=== PATIENT | female | born 2000 | race Caucasian/White ===

== ENCOUNTER 2020-03-09 00:10 | Outpatient (CLI) | payer MEDICAID, OTHER ==
[2020-03-09 00:52] LABS: APPEARANCE,URINE SLIGHTLY-CLOUDY; BILIRUBIN,URINE NEGATIVE (NEGATIVE); COLOR,URINE STRAW; GLUCOSE, URINE NEGATIVE (NEGATIVE); KETONES,URINE NEGATIVE (NEGATIVE); LEUKOCYTE ESTERASE,URINE NEGATIVE (NEGATIVE); NITRITE,URINE NEGATIVE (NEGATIVE); PROTEIN,URINE NEGATIVE (NEGATIVE); URINE SPECIFIC GRAVITY 1.006; UROBILINOGEN,URINE NEGATIVE mg/dL (<2.0)
[2020-03-09 01:10] LABS: URINE AMPHETAMINES SCREEN NEGATIVE; URINE BARBITURATES SCREEN NEGATIVE; URINE BENZODIAZEPINES SCREEN NEGATIVE; URINE COCAINE SCREEN NEGATIVE; URINE MARIJUANA (THC) SCREEN NEGATIVE; URINE METHADONE SCREEN NEGATIVE; URINE PHENCYCLIDINE SCREEN NEGATIVE
--- NOTE | 2020-03-09 02:03 | Non Stress Test Report ---
Non Stress Test Datetime Report Generated by CPN: 03/09/2020 02:03 DEMOGRAPHIC Test Number: 1 EGA NST: 34.5 INDICATION Indication for Study (NST) Other: LC URINE RESULTS Urine Protein, NST: Negative Urine Ketones - NST: Negative Urine Glucose - NST: Negative Urine Blood - NST: Negative MONITORING Monitor Explained: Monitor Explained; Test Explained; Patient Verbalized Understanding Time on Monitor: 03/09/2020 00:33 Time off Monitor: 03/09/2020 01:28 NST Duration: 55 NST INTERVENTIONS NST Interventions: PO Hydration Physician Notified NST: Dr. Hua BABY A: [id number] BABY A Movement : Present Contraction Frequency : rare with ui FHR Baseline : 125 Accelerations : 15X15 Decelerations : None Variability : Moderate 6-25bpm NST Review: Meets Criteria for Reactive NST NST Review and Verified By : Maria C Goss RN NST Results: Reactive NST REPORT Report Trigger: Send Report
== END 2020-03-09 03:27 | disposition home or self-care (01) ==
LOC: LC 00:10
PROVIDERS: ATTEND Obstetrics & Gynecology
DX: O47.03 False labor before 37 completed weeks of gestation, third trimester (principal); Z3A.34 34 weeks gestation of pregnancy
CPT/HCPCS: 59025; 80307; 81001

== ENCOUNTER 2020-03-19 23:12 | Outpatient (CLI) | payer OTHER ==
[2020-03-19 23:58] LABS: APPEARANCE,URINE CLEAR; BILIRUBIN,URINE NEGATIVE (NEGATIVE); COLOR,URINE STRAW; GLUCOSE, URINE NEGATIVE (NEGATIVE); KETONES,URINE 20 mg/dL (NEGATIVE); LEUKOCYTE ESTERASE,URINE NEGATIVE (NEGATIVE); NITRITE,URINE NEGATIVE (NEGATIVE); PROTEIN,URINE NEGATIVE (NEGATIVE); URINE SPECIFIC GRAVITY 1.005; UROBILINOGEN,URINE NEGATIVE mg/dL (<2.0)
[2020-03-20 00:11] LABS: URINE AMPHETAMINES SCREEN NEGATIVE; URINE BARBITURATES SCREEN NEGATIVE; URINE BENZODIAZEPINES SCREEN NEGATIVE; URINE COCAINE SCREEN NEGATIVE; URINE MARIJUANA (THC) SCREEN NEGATIVE; URINE METHADONE SCREEN NEGATIVE; URINE PHENCYCLIDINE SCREEN NEGATIVE
--- NOTE | 2020-03-20 00:25 | Non Stress Test Report ---
Non Stress Test Datetime Report Generated by CPN: 03/20/2020 00:24 DEMOGRAPHIC EGA NST: 36.1 INDICATION Indication for Study (NST) Other: LC- ctx MONITORING Monitor Explained: Monitor Explained; Test Explained; Patient Verbalized Understanding Time on Monitor: 03/19/2020 23:28 Time off Monitor: 03/20/2020 00:18 NST Duration: 50 NST INTERVENTIONS NST Interventions: None Physician Notified NST: Dr. Velázquez BABY A: [id number] BABY A Movement : Present Contraction Frequency : irregular FHR Baseline : 130 Accelerations : 15X15 Decelerations : None Variability : Moderate 6-25bpm NST Review: Meets Criteria for Reactive NST NST Review and Verified By : ANGELA Sandoval Results: Reactive NST REPORT Report Trigger: Send Report
== END 2020-03-20 00:24 | disposition home or self-care (01) ==
LOC: LC 23:12
PROVIDERS: ATTEND Obstetrics & Gynecology Gynecology
DX: O47.03 False labor before 37 completed weeks of gestation, third trimester (principal); Z3A.36 36 weeks gestation of pregnancy
CPT/HCPCS: 59025; 80307; 81001; 84112

== ENCOUNTER 2020-04-18 01:27 | Outpatient (CLI) | payer OTHER ==
[2020-04-18 01:57] LABS: APPEARANCE,URINE CLEAR; BILIRUBIN,URINE NEGATIVE (NEGATIVE); COLOR,URINE STRAW; GLUCOSE, URINE NEGATIVE (NEGATIVE); KETONES,URINE NEGATIVE (NEGATIVE); LEUKOCYTE ESTERASE,URINE NEGATIVE (NEGATIVE); NITRITE,URINE NEGATIVE (NEGATIVE); PROTEIN,URINE NEGATIVE (NEGATIVE); URINE SPECIFIC GRAVITY 1.009; UROBILINOGEN,URINE NEGATIVE mg/dL (<2.0)
[2020-04-18 02:20] LABS: URINE AMPHETAMINES SCREEN NEGATIVE; URINE BARBITURATES SCREEN NEGATIVE; URINE BENZODIAZEPINES SCREEN NEGATIVE; URINE COCAINE SCREEN NEGATIVE; URINE MARIJUANA (THC) SCREEN NEGATIVE; URINE METHADONE SCREEN NEGATIVE; URINE PHENCYCLIDINE SCREEN NEGATIVE
--- NOTE | 2020-04-18 03:35 | Non Stress Test Report ---
Non Stress Test Datetime Report Generated by CPN: 04/18/2020 03:35 DEMOGRAPHIC EGA NST: 40.3 INDICATION Indication for Study (NST) Other: LC URINE RESULTS Urine Protein, NST: Negative Urine Ketones - NST: Negative Urine Glucose - NST: Negative Urine Blood - NST: Negative MONITORING Monitor Explained: Monitor Explained; Test Explained; Patient Verbalized Understanding Time on Monitor: 04/18/2020 01:47 Time off Monitor: 04/18/2020 02:42 NST Duration: 55 NST INTERVENTIONS NST Interventions: PO Hydration Physician Notified NST: Tyrese BABY A: [id number] BABY A Movement : Present Contraction Frequency : IREGG FHR Baseline : 125 Accelerations : 15X15 Decelerations : None Variability : Moderate 6-25bpm NST Review: Meets Criteria for Reactive NST NST Review and Verified By : Caden Puga RN Results: Reactive NST REPORT Report Trigger: Send Report
== END 2020-04-18 02:54 | disposition home or self-care (01) ==
LOC: LC 01:27
PROVIDERS: ATTEND Obstetrics & Gynecology
DX: O47.1 False labor at or after 37 completed weeks of gestation (principal); O48.0 Post-term pregnancy; Z3A.40 40 weeks gestation of pregnancy
CPT/HCPCS: 59025; 80307; 81005

== ENCOUNTER 2020-04-21 17:12 | Outpatient (CLI) | payer OTHER ==
[2020-04-21] MEDS ORDERED: RINGERS SOLUTION,LACTATED 1,000 ML IV SCH (18:00)
[2020-04-21] MEDS ORDERED: RINGERS SOLUTION,LACTATED 1,000 ML IV PRN (18:35)
[2020-04-21 19:05] LABS: APPEARANCE,URINE CLEAR; BILIRUBIN,URINE NEGATIVE (NEGATIVE); COLOR,URINE STRAW; GLUCOSE, URINE NEGATIVE (NEGATIVE); KETONES,URINE NEGATIVE (NEGATIVE); LEUKOCYTE ESTERASE,URINE NEGATIVE (NEGATIVE); NITRITE,URINE NEGATIVE (NEGATIVE); PROTEIN,URINE NEGATIVE (NEGATIVE); URINE SPECIFIC GRAVITY 1.004; UROBILINOGEN,URINE NEGATIVE mg/dL (<2.0)
[2020-04-21 19:23] LABS: URINE AMPHETAMINES SCREEN NEGATIVE; URINE BARBITURATES SCREEN NEGATIVE; URINE BENZODIAZEPINES SCREEN NEGATIVE; URINE COCAINE SCREEN NEGATIVE; URINE MARIJUANA (THC) SCREEN NEGATIVE; URINE METHADONE SCREEN NEGATIVE; URINE PHENCYCLIDINE SCREEN NEGATIVE
--- NOTE | 2020-04-21 20:47 | Non Stress Test Report ---
Non Stress Test Datetime Report Generated by CPN: 04/21/2020 20:47 DEMOGRAPHIC EGA NST: 40.6 MONITORING Monitor Explained: Monitor Explained; Test Explained; Patient Verbalized Understanding Time on Monitor: 04/21/2020 17:24 Time off Monitor: 04/21/2020 19:10 NST Duration: 106 NST INTERVENTIONS NST Interventions: IV Fluids Physician Notified NST: Dr. Tyrese BABY A: [id number] BABY A Movement : Present Contraction Frequency : Irregular FHR Baseline : 140 Accelerations : 15X15 Decelerations : None Variability : Moderate 6-25bpm NST Review: Meets Criteria for Reactive NST NST Review and Verified By : D Hildance RN NST Results: Reactive NST REPORT Report Trigger: Send Report
--- NOTE | 2020-04-21 21:05 | RADIOLOGY REPORT (SQ) ---
EXAM DESCRIPTION: US LIMITED COMPLETED DATE/TME: 04/21/2020 20:00 CLINICAL HISTORY: 19 years Female Repeat GARETH at 20:00 please. COMPARISON: None. TECHNIQUE: Transabdominal duplex imaging performed to evaluate the pelvis. FINDINGS: Vertex presentation. heart rate 153 bpm. GARETH 5.7 cm. IMPRESSION: GARETH 5.7 cm
== END 2020-04-21 20:43 | disposition home or self-care (01) ==
LOC: LC 17:12
PROVIDERS: ATTEND Obstetrics & Gynecology
DX: O26.893 Other specified pregnancy related conditions, third trimester (principal); Z3A.40 40 weeks gestation of pregnancy
CPT/HCPCS: 76815; 80307; 81005

== ENCOUNTER 2020-04-22 15:18 | Outpatient (CLI) | payer OTHER ==
--- NOTE | 2020-04-22 16:26 | Non Stress Test Report ---
Non Stress Test Datetime Report Generated by CPN: 04/22/2020 16:25 DEMOGRAPHIC EGA NST: 41.0 INDICATION Indication for Study (NST) Other: IUP at 41 weeks MONITORING Monitor Explained: Monitor Explained; Test Explained; Patient Verbalized Understanding Time on Monitor: 04/22/2020 15:32 Time off Monitor: 04/22/2020 16:21 NST Duration: 49 NST INTERVENTIONS NST Interventions: PO Hydration; Reposition Patient Physician Notified NST: C. Rucker CNM on unit, reviewed fht BABY A: [id number] BABY A Movement : Present Contraction Frequency : x2 FHR Baseline : 125 Accelerations : 15X15 Decelerations : None Variability : Moderate 6-25bpm NST Review: Meets Criteria for Reactive NST NST Review and Verified By : Nixon Ahn RN NST Results: Reactive NST REPORT Report Trigger: Send Report
[2020-04-22 17:09] LABS: AMORPHOUS SEDIMENT,URINE TRACE /HPF; APPEARANCE,URINE CLOUDY; BILIRUBIN,URINE NEGATIVE (NEGATIVE); COLOR,URINE YELLOW; GLUCOSE, URINE NEGATIVE (NEGATIVE); KETONES,URINE NEGATIVE (NEGATIVE); LEUKOCYTE ESTERASE,URINE TRACE (NEGATIVE); NITRITE,URINE NEGATIVE (NEGATIVE); PROTEIN,URINE NEGATIVE (NEGATIVE); URINE SPECIFIC GRAVITY 1.012
[2020-04-22 17:15] LABS: URINE AMPHETAMINES SCREEN NEGATIVE; URINE BARBITURATES SCREEN NEGATIVE; URINE BENZODIAZEPINES SCREEN NEGATIVE; URINE COCAINE SCREEN NEGATIVE; URINE MARIJUANA (THC) SCREEN NEGATIVE; URINE METHADONE SCREEN NEGATIVE; URINE PHENCYCLIDINE SCREEN NEGATIVE
== END 2020-04-22 16:41 | disposition home or self-care (01) ==
LOC: LC 15:18
PROVIDERS: ATTEND Obstetrics & Gynecology Gynecology
DX: O48.0 Post-term pregnancy (principal); Z3A.40 40 weeks gestation of pregnancy; Z87.891 Personal history of nicotine dependence
CPT/HCPCS: 59025; 80307; 81001

== ENCOUNTER 2020-04-23 17:18 | Inpatient (IN) | payer OTHER ==
[2020-04-23] MEDS ORDERED: RINGERS SOLUTION,LACTATED 1,000 ML IV PRN (17:30)
[2020-04-23] MEDS ORDERED: RINGERS SOLUTION,LACTATED 1,000 ML IV ONE (17:30)
[2020-04-23] MEDS ORDERED: OXYTOCIN/0.9 % SODIUM CHLORIDE 30 UNIT/500 ML RTUINJ IV PRN (18:10)
[2020-04-23] MEDS ORDERED: OXYTOCIN/0.9 % SODIUM CHLORIDE 30 UNIT/500 ML RTUINJ ONE (18:11)
[2020-04-23] MEDS ORDERED: MISOPROSTOL 0.2 MG TABLET ONE (18:11)
[2020-04-23] MEDS ORDERED: LIDOCAINE 1% INJ-PF (10 MG/ML) 30 ML SDV ONE (18:11)
[2020-04-23] MEDS ORDERED: OXYTOCIN 10 UNIT/ML VIAL ONE (18:11)
[2020-04-23 18:13] LABS: ABSOLUTE EOSINOPHILS # (AUTO) 0.1 10^3/uL (0.0-0.6); ABSOLUTE MONOCYTES (AUTO) 0.7 10^3/uL (0.1-1.4); ABSOLUTE NEUT (AUTO) 9.1 10^3/uL (1.7-8.2); BASOPHILS % (AUTO) 0.3 % (0-2); EOSINOPHILS % (AUTO) 0.7 % (0-6); HEMATOCRIT 32.3 % (36.0-47.0); LYMPHOCYTES % (AUTO) 16.8 % (13-45); MEAN CORPUSCULAR HEMOGLOBIN 27.7 pg (27.0-33.4); MEAN CORPUSCULAR VOLUME 82 fl (80-97); MONOCYTES % (AUTO) 5.9 % (3-13); PLATELET COUNT 363 10^3/uL (150-450); RED BLOOD COUNT 3.96 10^6/uL (3.72-5.28); RED CELL DISTRIBUTION WIDTH 13.9 % (11.5-14.0); SEGMENTED NEUTROPHILS % (AUTO) 76.3 % (42-78); TOTAL CELLS COUNTED % (AUTO) 100 %
[2020-04-23 18:34] LABS: URINE AMPHETAMINES SCREEN NEGATIVE; URINE BARBITURATES SCREEN NEGATIVE; URINE BENZODIAZEPINES SCREEN NEGATIVE; URINE COCAINE SCREEN NEGATIVE; URINE MARIJUANA (THC) SCREEN NEGATIVE; URINE METHADONE SCREEN NEGATIVE; URINE PHENCYCLIDINE SCREEN NEGATIVE
[2020-04-23 20:22] LABS: APPEARANCE,URINE CLOUDY; BILIRUBIN,URINE NEGATIVE (NEGATIVE); COLOR,URINE YELLOW; GLUCOSE, URINE NEGATIVE (NEGATIVE); KETONES,URINE 20 mg/dL (NEGATIVE); LEUKOCYTE ESTERASE,URINE MODERATE (NEGATIVE); NITRITE,URINE NEGATIVE (NEGATIVE); PROTEIN,URINE 30 mg/dL (NEGATIVE); URINE SPECIFIC GRAVITY 1.021
[2020-04-24] MEDS ORDERED: GENTAMICIN SULFATE INJ 80 MG/2 ML VIAL IV ONE (02:30)
[2020-04-24] MEDS ORDERED: AMPICILLIN SODIUM 2 GM in NORMAL SALINE 100 ML IV ONE (03:00)
[2020-04-24] MEDS ORDERED: GENTAMICIN SULFATE INJ 80 MG/2 ML VIAL ONE (03:23)
[2020-04-24] MEDS ORDERED: AMPICILLIN SOD INJ 2 GM VIAL ONE (03:24)
[2020-04-24] MEDS ORDERED: METHYLERGONOVINE MALEATE INJ/PF 0.2 MG/1 ML AMPULE ONE (06:15)
[2020-04-24] MEDS ORDERED: DIBUCAINE 1% OINTMENT 28 GM TP PRN (06:47)
[2020-04-24] MEDS ORDERED: PROMETHAZINE HCL INJ 25 MG/1 ML VIAL IV PRN (06:47)
[2020-04-24] MEDS ORDERED: DIPH/PERTUSS(ACELL)/TETANUS VAC/PF 0.5 ML SYR (>=10YO) IM PRN (06:47)
[2020-04-24] MEDS ORDERED: PSEUDOEPHEDRINE HCL 30 MG TABLET PO PRN (06:47)
[2020-04-24] MEDS ORDERED: MAGNESIUM HYDROXIDE SUSP 30 ML UDCUP PO PRN (06:47)
[2020-04-24] MEDS ORDERED: PROMETHAZINE HCL 25 MG SUPP.RECT PR PRN (06:47)
[2020-04-24] MEDS ORDERED: BENZOCAINE/MENTHOL AEROSOL SPRAY 56 ML TOP PRN (06:47)
[2020-04-24] MEDS ORDERED: METHYLERGONOVINE MALEATE INJ/PF 0.2 MG/1 ML AMPULE IM PRN (06:47)
[2020-04-24] MEDS ORDERED: ACETAMINOPHEN 325 MG TABLET PO PRN (06:47)
[2020-04-24] MEDS ORDERED: ACETAMINOPHEN WITH CODEINE #3 TABLET PO PRN ×2 (06:47)
[2020-04-24] MEDS ORDERED: GLYCERIN/WITCH HAZEL LEAF 1 EACH MED..WIPE TP PRN (06:47)
[2020-04-24] MEDS ORDERED: OXYTOCIN/0.9 % SODIUM CHLORIDE 30 UNIT/500 ML RTUINJ IV PRN (06:47)
[2020-04-24] MEDS ORDERED: MISOPROSTOL 0.2 MG TABLET PR PRN (06:47)
[2020-04-24] MEDS ORDERED: NA PHOS,M-B/NA PHOS,DI-BA (ADULT) 133 ML ENEMA PR PRN (06:47)
[2020-04-24] MEDS ORDERED: DIPHENHYDRAMINE HCL 25 MG CAPSULE PO PRN (06:47)
[2020-04-24] MEDS ORDERED: PROMETHAZINE HCL 25 MG TABLET PO PRN (06:47)
[2020-04-24] MEDS ORDERED: MEASLES,MUMPS&RUBELLA VACC/PF 0.5 ML VIAL SUBCUT PRN (06:47)
[2020-04-24] MEDS ORDERED: ZOLPIDEM TARTRATE 5 MG TABLET PO PRN (06:47)
--- NOTE | 2020-04-24 07:08 | Admission Physical ---
Datetime Report Generated by CPN: 04/24/2020 07:08 CURRENT ADMISSION Chief Complaint: Uterine Contractions Indication for Induction: Post Dates; Oligohydramnios Admit Impression : Term, Intrauterine ; Ruptured Membranes; Intact Membranes; Induction of Labor Admit Plan: Admit to Unit; Initiate Labor Protocol ALLERGIES Medication Allergies: No Medication Allergies: No Known Allergies (03/19/2020) Latex: No Latex Allergies Food Allergies: denies Environmental Allergies: denies OBSTETRICAL HISTORY EDC: 04/15/2020 00:00 : 1 Para: 0 Term: 0 : 0 SAB: 0 IAB: 0 Ectopic: 0 Livin Cesareans: 0 VBACs: 0 Multiple Births: 0 Gestational Diabetes: No Rh Sensitization: No Incompetent Cervix: No AB: No Infertility: No ART Treatment: No Uterine Anomaly: No IUGR: No Hx Previous C/S: No Macrosomia: No Hx Loss/Stillborn: No PIH: No Hx : No Placenta Previa/Abruption: No Depression/PP Depression: No PTL/PROM: No Post Hemorrhage: No Current Procedures: Ultrasound; NST Obstetrical History Comments: g1-current SEE RECORDS Alcohol: No Marijuana : No Cocaine: No Other Illicit Drugs: No Cigarettes: Former Smoker. [id number] Cigarette Comments: quit with MEDICAL HISTORY Diabetes: No Blood Transfusion: No Pulmonary Disease (Asthma, TB): No Breast Disease: No Hypertension: No Foam Charger Surgery: No Heart Disease: No Hosp/Surgery: No Autoimmune Disorder: No Anesthetic Complications: No Kidney Disease: No Abnormal Pap Smear: No Neuro/Epilepsy: No Psychiatric Disorders: No Other Medical Diseases: No Hepatitis/Liver Disease: No Significant Family History: No Varicosities/Phlebitis: No Trauma/Violence : No Thyroid Dysfunction: No INFECTIOUS HISTORY Gonorrhea: No Genital Herpes: No Chlamydia: No Tuberculosis: No Syphilis: No Hepatitis: No HIV/AIDS Exposure: No Rash or Viral Illness: No HPV: No PHYSICAL EXAM General: Normal HEENT: Normal Neurologic: Normal Thyroid: Deferred Heart: Normal Lungs: Normal Breast: Deferred Back: Normal Abdomen: Normal Genitourinary Exam: Normal Extremities: Normal DTRs: Normal Pelvic Type: Adequate Vital Signs: Reviewed VAGINAL EXAM Dilatation: 2 Effacement: 70 Station: -3 Contraction Comments: rare MEMBRANES Membranes: Ruptured FETUS A EGA: 41.2 Monitoring: External US FHR- Baseline: 125 Variability: Moderate 6-25bpm Accelerations: 15X15 Decelerations: None FHR Category: Category I Presentation: Vertex Admit Comment: 19yo at 41+1ega here for IOL due to post AYLA and oligo. SHe reports she broke her water at approx noon. Did not come up unitl 1700ish. AMP/Gent ordered for after midnight due to will be 18 hours ruptured at 0600 on 04/24. GBS negative. Admit to labor and delivery for augmentation due to SROM/PostEDD/Scheduled IOL with oligo. Anticipate . PLANS FOR LABOR AND DELIVERY Labor and Delivery: None Pain Management: Natural Feeding Preference: Breast Benefit of Breast Feed Discussed: Yes Circumcision: N/A INFORMED CONSENT Informed Consent Obtained: Vaginal Delivery; Induction of Labor; Risks, Benefits and Alternatives Discussed Signature: with User ID: [email or web address]
--- NOTE | 2020-04-24 07:24 | Delivery Summary ---
Del Sum A-C Datetime Report Generated by CPN: 04/24/2020 07:23 DELIVERY PERSONNEL DELIVERY PERSONNEL: [id number] Delivery Doctor:: Juana Montoya MD Labor and Delivery Nurse:: Susan Kearney RNfull time staff interpreter Nurse:: Berta Gibbs RN Trim Mechanic/IS TECHNICIAN: Sandra Manjinder, ST MATERNAL INFORMATION Delivery Anesthesia: None Medications After Delivery: Pitocin Bolus-Please Comment; Methergine 0.2mg IM; Cytotec 1000mcg Per Rectum/Vagina Meds After Delivery Comment: Pitocin 30 units/500 ml NSS Estimated Blood Loss (ml): 300 Delivery QBL: 300 Maternal Complications: None Provider Comments: VFI delivered in LESLIE presentation. No nuchal cord. Shoulders and body delivered without difficulty. to maternal abdomen for NRP. Cord doubly clamped and cut after 2 minites. Lower uterine segment atony noted and improved after Metergine Intrauterine, Cytotec 1000mcg MO, IV pitocin. FF at U. Placenta delivered intact spontaneously. 2nd degree perineal laceration repaired in usual fashion. LABOR SUMMARY EDC: 04/15/2020 00:00 No. Babies in Womb: 1 Attempted: No Labor Anesthesia: None LABOR INFORMATION Reason for Induction: Oligohydramnios Onset of Labor: 04/23/2020 23:47 Complete Dilatation: 04/24/2020 04:44 Oxytocin: Induction Group B Beta Strep: negative Antibiotics # of Doses: 0 Antibiotics Time of Last Dose: n/a Name of Antibiotic Given: n/a Steroids Given: None Reason Steroids Not Administered: Not Applicable MEMBRANES Membranes Rupture Method: Spontaneous Rupture of Membranes: 04/23/2020 12:00 Length of Rupture (hr): 18.03 Amniotic Fluid Color: Clear Amniotic Fluid Amount: Small Amniotic Fluid Odor: None STAGES OF LABOR Stage 1 hr: 4 Stage 1 min: 57 Stage 2 hr: 1 Stage 2 min: 18 Stage 3 hr: 0 Stage 3 min: 6 Total Time in Labor hr: 6 Total Time in Labor min: 21 VAGINAL DELIVERY Episiotomy: None Laceration #1: Perineal Laceration Extension #1: Second Degree Laceration Repair: Yes Laceration Repair Note: 2nd degree perineal laceration repaired with good hemostasis Sponge Count Correct: Yes Sharps Count Correct: Yes CSECTION DELIVERY Primary Indication: N/A Secondary Indication: N/A CSection Incidence: N/A Labor: N/A Elective: N/A CSection Incision: N/A BABY A INFORMATION Infant Delivery Date/Time: 04/24/2020 06:02 Method of Delivery: Vaginal Nurse Controlled Delivery: No Born in Route : No : N/A Forceps: N/A Vacuum Extraction: N/A Shoulder Dystocia : No PRESENTATION/POSITION BABY A Presentation: Cephalic Cephalic Presentation: Vertex Vertex Position: Right Occipital Anterior Breech Presentation: N/A PLACENTA INFORMATION BABY A Placenta Delivery Time : 04/24/2020 06:08 Placenta Method of Delivery: Spontaneous Placenta Status: Delivered SCORES BABY A Heart Rate 1 min: >100 bpm Resp Effort 1 min: Good Cry Reflex Irritability 1 min: Cough or Sneeze or Pulls Away Muscle Tone 1 min: Active Motion Color 1 min: Body Rowley, Extremities Blue Resuscitation Effort 1 min: Tactile Stimulation SCORE 1 MIN: 9 Heart Rate 5 min: >100 bpm Resp Effort 5 min: Good Cry Reflex Irritability 5 min: Cough or Sneeze or Pulls Away Muscle Tone 5 min: Active Motion Color 5 min: Body Rowley, Extremities Blue Resuscitation Effort 5 min: Tactile Stimulation SCORE 5 MIN: 9 INFORMATION BABY A Gestational Age at Delivery: 41.2 Gestational Status: Late Term- 41- 41.6 Weeks Infant Outcome : Liveborn Infant Condition : Stable Infant Sex: Female IDENTIFICATION BABY A Verification Date/Time: 04/24/2020 06:18 ID Band Number: [id number] Mother's Name Verified: Yes Infant RN Verifying : , RN/Mago, RN WEIGHT/LENGTH BABY A Birthweight (gm): 3480 Weight (lb): 7 Weight (oz): 11 Infant Length (in): 20.50 Infant Length (cm): 52.07 CORD INFORMATION BABY A No. Cord Vessels: 3 Nuchal Cord : N/A Cord Blood Taken: Yes-For Eval (Mom's Blood Type - or O+) Suction: None; Mouth ASSESSMENT BABY A Infant Complications: Oligohydramnios Physical Findings at Delivery: Caput Succedaneum Infant Respirations: Appears Normal Skin to Skin: Yes Fire Equipment Operator/ALS Called : No Infant Care By: ANGELA Walsh Transferred To: Remains with Mother SIGNATURES Signature: with User ID: [email or web address]
[2020-04-24] MEDS ORDERED: PRENATAL VITAMIN W DHA CAPSULE PO ONE (10:14)
[2020-04-24] MEDS ORDERED: FAMOTIDINE 20 MG TABLET ONE (10:15)
[2020-04-24] MEDS ORDERED: DOCUSATE SODIUM 100 MG CAPSULE ONE (10:15)
[2020-04-24] MEDS ORDERED: SENNOSIDES/DOCUSATE 8.6-50 MG 1 EACH TABLET ONE (10:15)
[2020-04-24] MEDS ORDERED: FERROUS SULFATE 325 MG TABLET PO ONE (10:15)
[2020-04-24] MEDS: FAMOTIDINE 20 MG TABLET PO SCH ×2 (10:17→21:15)
[2020-04-24] MEDS: SENNOSIDES/DOCUSATE 8.6-50 MG 1 EACH TABLET PO SCH (10:17)
[2020-04-24] MEDS: PRENATAL VITAMIN W DHA CAPSULE PO SCH (10:17)
[2020-04-24] MEDS: FERROUS SULFATE 325 MG TABLET PO SCH ×2 (10:17→17:22)
[2020-04-24] MEDS: DOCUSATE SODIUM 100 MG CAPSULE PO SCH ×2 (10:17→17:22)
[2020-04-24] MEDS ORDERED: BENZOCAINE/MENTHOL AEROSOL SPRAY 56 ML ONE (10:21)
[2020-04-24] MEDS: GENTAMICIN SULFATE INJ 80 MG/2 ML VIAL IV SCH ×2 (10:30→17:07)
[2020-04-24] MEDS: IBUPROFEN 800 MG TABLET PO SCH ×2 (15:41→21:15)
[2020-04-25] MEDS: GENTAMICIN SULFATE INJ 80 MG/2 ML VIAL IV SCH (01:04)
[2020-04-25] MEDS: IBUPROFEN 800 MG TABLET PO SCH ×3 (05:34→21:30)
[2020-04-25 06:37] LABS: HEMATOCRIT 33.1 % (36.0-47.0); MEAN CORPUSCULAR HEMOGLOBIN 27.2 pg (27.0-33.4); MEAN CORPUSCULAR HGB CONC 33.3 g/dL (32.0-36.0); MEAN CORPUSCULAR VOLUME 82 fl (80-97); PLATELET COUNT 304 10^3/uL (150-450); RED BLOOD COUNT 4.06 10^6/uL (3.72-5.28); RED CELL DISTRIBUTION WIDTH 13.9 % (11.5-14.0); WHITE BLOOD COUNT 12.5 10^3/uL (4.0-10.5)
[2020-04-25] MEDS: PRENATAL VITAMIN W DHA CAPSULE PO SCH ×2 (11:01→11:13)
[2020-04-25] MEDS: FAMOTIDINE 20 MG TABLET PO SCH ×3 (11:01→21:31)
[2020-04-25] MEDS: FERROUS SULFATE 325 MG TABLET PO SCH ×3 (11:01→17:19)
[2020-04-25] MEDS: SENNOSIDES/DOCUSATE 8.6-50 MG 1 EACH TABLET PO SCH ×2 (11:02→11:14)
[2020-04-25] MEDS: DOCUSATE SODIUM 100 MG CAPSULE PO SCH ×3 (11:02→17:19)
--- NOTE | 2020-04-25 12:15 | PDOC PROGRESS REPORT ---
Subjective-OB Progress Note for:: 04/25/20 Subjective: reports bleeding slowing, pain controlled with current meds. denies needs. Physical Exam (OB) Vital Signs: Temp Pulse Resp BP Pulse Ox 97.6 F 64 18 102/59 L 98 04/25/20 08:07 04/25/20 08:07 04/25/20 08:07 04/25/20 08:07 04/25/20 08:07 Intake & Output 04/24/20 04/25/20 04/26/20 06:59 06:59 06:59 Weight 80.5 kg - Abdomen Description: Soft Hernia Present: No Fundal Description: Midline Fundal Height: u/u - u/2 - Abdominal Distension: No distension Tenderness: Nontender - Extremities Lower extremities: Sandeep's sign - neg Calf: Normal, Nontender Objective-Diagnostic Laboratory: 04/25/20 05:40 04/25/20 05:40 WBC 12.5 H RBC 4.06 Hgb 11.0 L Hct 33.1 L MCV 82 MCH 27.2 MCHC 33.3 RDW 13.9 Plt Count 304 Assessment and Plan(PN) - Assessment and Plan (1) SROM (spontaneous rupture of membranes) Is this a current diagnosis for this admission?: Yes (2) Normal vaginal delivery Is this a current diagnosis for this admission?: Yes (3) Obstetrical laceration, second degree Is this a current diagnosis for this admission?: Yes - Time Spent with Patient Time with patient: Less than 15 minutes Medications reviewed and adjusted accordingly: Yes - Disposition Anticipated Discharge: Home Within: within 24 hours
[2020-04-26] MEDS: IBUPROFEN 800 MG TABLET PO SCH (06:37)
[2020-04-26 08:05] VITALS: BP 118/56
--- NOTE | 2020-04-26 10:17 | PDOC DISCHARGE SUMMARY ---
Impression - Admit/DC Date/PCP Admission Date/Primary Care Provider: 04/23/20 17:18 Discharge Date: 04/26/20 - Discharge Diagnosis (1) SROM (spontaneous rupture of membranes) Is this a current diagnosis for this admission?: Yes (2) Normal vaginal delivery Is this a current diagnosis for this admission?: Yes (3) Obstetrical laceration, second degree Is this a current diagnosis for this admission?: Yes - Additional Information Discharge Diet: Regular Discharge Activity: Balance Activity w/Rest, Pelvic Rest Prescriptions: Ibuprofen [Motrin 800 mg Tablet] 800 mg PO Q8HP PRN #60 tablet PRN Reason: Home Medications: Pnv No.95/Ferrous Fum/Folic AC [ Vitamins Tablet] 1 tab PO DAILY 03/09/20 Ibuprofen [Motrin 800 mg Tablet] 800 mg PO Q8HP PRN #60 tablet 04/26/20 Results Laboratory Results: WBC 12.5 10^3/uL (4.0-10.5) H 04/25/20 05:40 RBC 4.06 10^6/uL (3.72-5.28) 04/25/20 05:40 Hgb 11.0 g/dL (12.0-15.5) L 04/25/20 05:40 Hct 33.1 % (36.0-47.0) L 04/25/20 05:40 MCV 82 fl (80-97) 04/25/20 05:40 MCH 27.2 pg (27.0-33.4) 04/25/20 05:40 MCHC 33.3 g/dL (32.0-36.0) 04/25/20 05:40 RDW 13.9 % (11.5-14.0) 04/25/20 05:40 Plt Count 304 10^3/uL (150-450) 04/25/20 05:40 Lymph % (Auto) 16.8 % (13-45) 04/23/20 17:46 [place] % (Auto) 5.9 % (3-13) 04/23/20 17:46 Eos % (Auto) 0.7 % (0-6) 04/23/20 17:46 Baso % (Auto) 0.3 % (0-2) 04/23/20 17:46 Absolute Neuts (auto) 9.1 10^3/uL (1.7-8.2) H 04/23/20 17:46 Absolute Lymphs (auto) 2.0 10^3/uL (0.5-4.7) 04/23/20 17:46 Absolute Monos (auto) 0.7 10^3/uL (0.1-1.4) 04/23/20 17:46 Absolute Eos (auto) 0.1 10^3/uL (0.0-0.6) 04/23/20 17:46 Absolute Basos (auto) 0.0 10^3/uL (0.0-0.2) 04/23/20 17:46 Seg Neutrophils % 76.3 % (42-78) 04/23/20 17:46 Urine Color YELLOW 04/23/20 17:28 Urine Appearance CLOUDY 04/23/20 17:28 Urine pH 6.0 (5.0-9.0) 04/23/20 17:28 Ur Specific [place] 1.021 04/23/20 17:28 Urine Protein 30 mg/dL (NEGATIVE) H 04/23/20 17:28 Urine Glucose (UA) NEGATIVE mg/dL (NEGATIVE) 04/23/20 17:28 Urine Ketones 20 mg/dL (NEGATIVE) H 04/23/20 17:28 Urine Blood MODERATE (NEGATIVE) H 04/23/20 17:28 Urine Nitrite NEGATIVE (NEGATIVE) 04/23/20 17:28 Urine Bilirubin NEGATIVE (NEGATIVE) 04/23/20 17:28 Urine Urobilinogen 2.0 mg/dL (<2.0) H 04/23/20 17:28 Ur Leukocyte Esterase MODERATE (NEGATIVE) H 04/23/20 17:28 Urine WBC (Auto) 68 /HPF 04/23/20 17:28 Urine RBC (Auto) 154 /HPF 04/23/20 17:28 Urine Bacteria (Auto) TRACE /HPF 04/23/20 17:28 Squamous Epi Cells Auto 13 /HPF 04/23/20 17:28 Urine Mucus (Auto) MOD /LPF 04/23/20 17:28 Urine Ascorbic Acid NEGATIVE (NEGATIVE) 04/23/20 17:28 Membranes Rupture POSITIVE (NEGATIVE) H 04/23/20 17:49 Urine Opiates Screen NEGATIVE 04/23/20 17:28 Urine Methadone Screen NEGATIVE 04/23/20 17:28 Ur Barbiturates Screen NEGATIVE 04/23/20 17:28 Ur Phencyclidine Scrn NEGATIVE 04/23/20 17:28 Ur Amphetamines Screen NEGATIVE 04/23/20 17:28 U Benzodiazepines Scrn NEGATIVE 04/23/20 17:28 Urine Cocaine Screen NEGATIVE 04/23/20 17:28 U Marijuana (THC) Screen NEGATIVE 04/23/20 17:28 RPR NONREACTIVE (NONREACTIVE) 04/23/20 17:46 Blood Type O POSITIVE 04/23/20 19:14 Blood Type Confirm O POSITIVE 04/23/20 17:46 Antibody Screen NEGATIVE 04/23/20 19:14 Plan Plan of Treatment: follow up in 4 weeks at [facility] for post check
[2020-04-26] MEDS: DOCUSATE SODIUM 100 MG CAPSULE PO SCH (10:47)
[2020-04-26] MEDS: PRENATAL VITAMIN W DHA CAPSULE PO SCH (10:47)
[2020-04-26] MEDS: FAMOTIDINE 20 MG TABLET PO SCH (10:48)
[2020-04-26] MEDS: FERROUS SULFATE 325 MG TABLET PO SCH (10:48)
[2020-04-26] MEDS: SENNOSIDES/DOCUSATE 8.6-50 MG 1 EACH TABLET PO SCH (10:48)
== END 2020-04-26 12:47 | disposition home or self-care (01) | DRG 806 ==
LOC: LR 17:18 → 2S 04-24 12:13
PROVIDERS: ADMIT Student in an Organized Health Care Education/Training Program; ATTEND Student in an Organized Health Care Education/Training Program
PROC: 10E0XZZ Delivery of Products of Conception, External Approach (ICD-10-PCS; principal; 2020-04-24)
PROC: 0KQM0ZZ Repair Perineum Muscle, Open Approach (ICD-10-PCS; 2020-04-24)
DX: O48.0 Post-term pregnancy (principal); O41.03X0 Oligohydramnios, third trimester, not applicable or unspecified; Z37.0 Single live birth; O62.2 Other uterine inertia; O70.1 Second degree perineal laceration during delivery; O99.334 Smoking (tobacco) complicating childbirth; F17.211 Nicotine dependence, cigarettes, in remission; Z3A.41 41 weeks gestation of pregnancy
CPT/HCPCS: 36415; 80307; 81001; 84112; 85025; 85027; 86592; 86850; 86900; 86901; J0290; J1580; J2210; J2590; J3490; J7050